=== PATIENT | female | born 1950 | race Caucasian/White ===

== ENCOUNTER 2017-09-02 08:23 | Day surgery (SDC) | payer MEDICARE ==
[~2017-09-02 08:23] MED LIST: MIDAZOLAM INJ 2 MG/2 ML VIAL (J2250) As Ordered; fentaNYL 100 MCG/2 ML INJECTION (J3010) As Ordered
[2017-09-02] MEDS: PROPARACAINE 0.5% OPHTH SOL 15ML OS (09:04)
[2017-09-02] MEDS: TROPICAMIDE 1% OPHTH SOLN 2ML OS (09:04)
[2017-09-02] MEDS: OFLOXACIN 0.3 % (OCUFLOX) OPTH SOL 5ML OS (09:04)
[2017-09-02] MEDS: PHENYLEPHRINE 2.5% OPHTH SOL 2ML OS (09:04)
[2017-09-02] MEDS: BALANCED SALT IRRIGATION SOLUTION 500ML BAG (FOR OR EYE MACHINE) As Ordered (09:58)
[2017-09-02] MEDS: POVIDONE-IODINE 5% OPHTH PREP SOL 30ML As Ordered (09:58)
[2017-09-02] MEDS: CEFUROXIME 1MG/0.1ML INTRACAMERAL INJ As Ordered (09:59)
[2017-09-02] MEDS: DUOVISC (0.50ML VISCOAT/0.55ML PROVISC) OPHTH KIT As Ordered (09:59)
[2017-09-02] MEDS: LIDOCAINE 0.75%/EPINEPHRINE 0.025% IN BSS 1ML SYR INTRACAMERAL (OR ONLY) As Ordered (09:59)
== END 2017-09-02 10:56 | disposition home or self-care (01) ==
LOC: M SDC 08:23
DX: H25.12 Age-related nuclear cataract, left eye (principal)
CPT/HCPCS: 66984

== ENCOUNTER 2017-09-09 09:59 | Day surgery (SDC) | payer MEDICARE ==
[2017-09-09] MEDS ORDERED: fentaNYL 100 MCG/2 ML INJECTION (J3010) As Ordered (10:11)
[2017-09-09] MEDS ORDERED: MIDAZOLAM INJ 2 MG/2 ML VIAL (J2250) As Ordered (10:11)
[2017-09-09] MEDS: PHENYLEPHRINE 2.5% OPHTH SOL 2ML OD (10:30)
[2017-09-09] MEDS: PROPARACAINE 0.5% OPHTH SOL 15ML OD (10:30)
[2017-09-09] MEDS: OFLOXACIN 0.3 % (OCUFLOX) OPTH SOL 5ML OD (10:40)
[2017-09-09] MEDS: TROPICAMIDE 1% OPHTH SOLN 2ML OD (10:40)
[2017-09-09] MEDS: BALANCED SALT IRRIGATION SOLUTION 500ML BAG (FOR OR EYE MACHINE) As Ordered (12:14)
[2017-09-09] MEDS: DUOVISC (0.50ML VISCOAT/0.55ML PROVISC) OPHTH KIT As Ordered (12:14)
[2017-09-09] MEDS: POVIDONE-IODINE 5% OPHTH PREP SOL 30ML As Ordered (12:14)
[2017-09-09] MEDS: CEFUROXIME 1MG/0.1ML INTRACAMERAL INJ As Ordered (12:15)
[2017-09-09] MEDS: LIDOCAINE 1% SDV 5 ML VIAL As Ordered (12:15)
== END 2017-09-09 13:00 | disposition home or self-care (01) ==
LOC: M SDC 13:00
DX: H25.11 Age-related nuclear cataract, right eye (principal)
CPT/HCPCS: 66984